=== PATIENT | male | born 1975 | race African-American/Black ===

== ENCOUNTER 2021-10-10 03:50 | Observation (INO) | payer BC ==
[2021-10-10] MEDS ORDERED: SODIUM CHLORIDE 0.9% 1,000 ML IV STA ×2 (03:54→06:06)
[2021-10-10] MEDS ORDERED: ADENOSINE 3 MG/ML 2 ML VIAL IVP STA (03:54)
[2021-10-10] MEDS ORDERED: METOPROLOL TARTRATE 5 MG/5 ML VIAL IVP STA (03:54)
[2021-10-10] MEDS ORDERED: IBUPROFEN 800 MG TAB PO STA (04:01)
[2021-10-10] MEDS ORDERED: ACETAMINOPHEN TAB 500 MG TAB PO STA (04:01)
--- NOTE | 2021-10-10 04:02 | ED ---
Arrhythmia/Palpitations HPI - General Chief Complaint: Arrhythmia/Palpitations Stated Complaint: High heart rate Time Seen by Provider: 10/10/21 03:53 Source: patient, EMS, RN notes reviewed, old records reviewed Mode of arrival: EMS Limitations: no limitations - History of Present Illness Initial Comments: This is a 46-year-old male to the ER for evaluation. Patient presents today for evaluation regards to severe shortness of breath significant elevated heart rate in SVT. Patient has again history of SVT. Patient states he feels weak and fatigued bodyaches body pains and fever. MD Complaint: rapid heart beat, "heart racing", palpitations -: hour(s) Arrhythmia History: SVT Associated Symptoms: anxiety, feeling of impending doom Treatments Prior to Arrival: other (none) - Related Data Home Medications Medication Instructions Recorded Confirmed Dm/Acetaminophen/Doxylamine [Vicks 30 ml PO Q6H PRN 10/10/21 10/10/21 Nyquil Cold-Flu Liquid] Metoprolol Succinate [Toprol XL] 50 mg PO DAILY 10/10/21 10/10/21 Previous Rx's Medication Instructions Recorded Azithromycin [Zithromax Z-pack (6 0 mg PO DIRECTED 5 Days #6 tab 10/10/21 tabs)] Budesonide-Formot 160-4.5 Mcg 2 puff INHALATION BID #1 each 10/10/21 [Symbicort 160-4.5 Mcg Inhaler] Triamcinolone Acetonide [Nasacort] 1 spray EA NOSTRIL BID 10 Days 10/10/21 #10.8 ml Allergies Allergy/AdvReac Type Severity Reaction Status Date / Time No Known Allergies Allergy Verified 10/10/21 08:07 Review of Systems ROS Statement: Those systems with pertinent positive or pertinent negative responses have been documented in the HPI. ROS Other: All systems not noted in ROS Statement are negative. Past Medical History Past Medical History: Hypertension Additional Past Medical History / Comment(s): Svt History of Any Multi-Drug Resistant Organisms: None Reported Past Surgical History: Appendectomy, Hernia Repair Additional Past Surgical History / Comment(s): Right Shoulder Surgery Past Psychological History: No Psychological Hx Reported Smoking Status: Never smoker Past Alcohol Use History: None Reported Past Drug Use History: None Reported General Exam Limitations: no limitations General appearance: alert, anxious, in distress Head exam: Present: atraumatic, normocephalic, normal inspection Eye exam: Present: normal appearance, PERRL, EOMI. Absent: scleral icterus, conjunctival injection, periorbital swelling ENT exam: Present: normal exam, mucous membranes moist Neck exam: Present: normal inspection. Absent: tenderness, meningismus, lymphadenopathy Respiratory exam: Present: normal lung sounds bilaterally. Absent: respiratory distress, wheezes, rales, rhonchi, stridor Cardiovascular Exam: Present: tachycardia, irregular rhythm, normal heart sounds. Absent: systolic murmur, diastolic murmur, rubs, gallop, clicks GI/Abdominal exam: Present: soft, normal bowel sounds. Absent: distended, tenderness, guarding, rebound, rigid Extremities exam: Present: normal inspection, full ROM, normal capillary refill. Absent: tenderness, pedal edema, joint swelling, calf tenderness Back exam: Present: normal inspection Neurological exam: Present: alert, oriented X3, CN II-XII intact Psychiatric exam: Present: normal affect, normal mood Skin exam: Present: warm, dry, intact, normal color. Absent: rash Course Vital Signs 10/10/21 10/10/21 10/10/21 04:01 08:21 08:49 Temperature 103.1 F H 99.2 F Pulse Rate 99 67 67 Pulse Rate [ Cte Teacher ] Respiratory 16 18 Rate Blood Pressure 136/92 108/78 Blood Pressure [Right Arm] O2 Sat by Pulse 97 96 97 Oximetry 10/10/21 10/10/21 10/10/21 09:15 12:31 13:42 Temperature 98.5 F 98.4 F Pulse Rate 67 63 Pulse Rate [ 78 Cte Teacher ] Respiratory 18 18 16 Rate Blood Pressure 111/78 124/85 Blood Pressure 138/93 [Right Arm] O2 Sat by Pulse 97 97 96 Oximetry 10/10/21 10/10/21 10/10/21 14:00 15:07 16:00 Temperature Pulse Rate Pulse Rate [ 78 73 Cte Teacher ] Respiratory 16 16 Rate Blood Pressure Blood Pressure 144/86 136/83 130/77 [Right Arm] O2 Sat by Pulse 96 95 Oximetry - Reevaluation(s) Reevaluation #1: 10/10/21 07:02 Medical record is reviewed Reevaluation #2: 10/10/21 07:02 Patient will do antibody treatment Reevaluation #3: 10/10/21 07:02 Patient is currently without chest pain or shortness of breath patient informed of results from labs and is agreeable for observation EKG Findings - EKG Comments: EKG Findings:: Initial. EKG shows SVT 186 WA 110 QRS 0.096 QTC 44. EKG shows sinus rhythm 100 care 142 QRS 70 QTC 434 Medical Decision Making - Medical Decision Making 46 male who presents to the emergency department today for evaluation. Patient presents today for evaluation of shortness of breath and patient is here without any chest pain and no other complaints. Patient is given antibodies here in the ER and will admit for trending of toroponin and monitoring. - Lab Data Result diagrams: 10/10/21 04:03 10/10/21 04:03 Lab Results 10/10/21 10/10/21 10/10/21 Range/Units 04:03 04:03 04:03 WBC 12.0 H (3.8-10.6) k/uL RBC 5.46 (4.30-5.90) m/uL Hgb 15.9 (13.0-17.5) gm/dL Hct 47.7 (39.0-53.0) % MCV 87.3 (80.0-100.0) fL MCH 29.2 (25.0-35.0) pg MCHC 33.4 (31.0-37.0) g/dL RDW 13.5 (11.5-15.5) % Plt Count 161 (150-450) k/uL MPV 8.9 Neutrophils % 80 % Lymphocytes % 6 % Monocytes % 9 % Eosinophils % 3 % Basophils % 0 % Neutrophils # 9.5 H (1.3-7.7) k/uL Lymphocytes # 0.7 L (1.0-4.8) k/uL Monocytes # 1.0 (0-1.0) k/uL Eosinophils # 0.3 (0-0.7) k/uL Basophils # 0.0 (0-0.2) k/uL PT 11.5 (9.0-12.0) sec INR 1.1 (<1.2) APTT 26.6 (22.0-30.0) sec D-Dimer 1.88 H (<0.60) mg/L FEU Sodium (137-145) mmol/L Potassium (3.5-5.1) mmol/L Chloride (98-107) mmol/L Carbon Dioxide (22-30) mmol/L Anion Gap mmol/L BUN (9-20) mg/dL Creatinine (0.66-1.25) mg/dL Est GFR (CKD-EPI)AfAm (>60 ml/min/1.73 sqM) Est GFR (CKD-EPI)NonAf (>60 ml/min/1.73 sqM) Glucose (74-99) mg/dL Plasma Lactic Acid Donny (0.7-2.0) mmol/L Calcium (8.4-10.2) mg/dL Phosphorus (2.5-4.5) mg/dL Magnesium (1.6-2.3) mg/dL Total Bilirubin (0.2-1.3) mg/dL AST (17-59) U/L ALT (4-49) U/L Alkaline Phosphatase (38-126) U/L Lactate Dehydrogenase (313-618) U/L Troponin I (0.000-0.034) ng/mL C-Reactive Protein (<1.0) mg/dL NT-Pro-B Natriuret Pep pg/mL Total Protein (6.3-8.2) g/dL Albumin (3.5-5.0) g/dL TSH (0.465-4.680) mIU/L Urine Color [place] Urine Appearance Cloudy (Clear) Urine pH 6.0 (5.0-8.0) Ur Specific [place] 1.026 (1.001-1.035) Urine Protein 2+ H (Negative) Urine Glucose (UA) Negative (Negative) Urine Ketones 2+ H (Negative) Urine Blood Large H (Negative) Urine Nitrite Negative (Negative) Urine Bilirubin 2+ H (Negative) Urine Urobilinogen 4.0 (<2.0) mg/dL Ur Leukocyte Esterase Negative (Negative) Urine RBC 49 H (0-5) /hpf Urine WBC 8 H (0-5) /hpf Ur Squamous Epith Cells 1 (0-4) /hpf Urine Bacteria Rare H (None) /hpf Cellular Casts 1 (0) /lpf Hyaline Casts 4 H (0-2) /lpf Granular Casts 8 (0) /lpf Urine Mucus Moderate H (None) /hpf Influenza Type A (PCR) (Not Detectd) Influenza Type B (PCR) (Not Detectd) RSV (PCR) (Not Detectd) SARS-CoV-2 (PCR) (Not Detectd) 10/10/21 10/10/21 10/10/21 Range/Units 04:03 04:03 04:03 WBC (3.8-10.6) k/uL RBC (4.30-5.90) m/uL Hgb (13.0-17.5) gm/dL Hct (39.0-53.0) % MCV (80.0-100.0) fL MCH (25.0-35.0) pg MCHC (31.0-37.0) g/dL RDW (11.5-15.5) % Plt Count (150-450) k/uL MPV Neutrophils % % Lymphocytes % % Monocytes % % Eosinophils % % Basophils % % Neutrophils # (1.3-7.7) k/uL Lymphocytes # (1.0-4.8) k/uL Monocytes # (0-1.0) k/uL Eosinophils # (0-0.7) k/uL Basophils # (0-0.2) k/uL PT (9.0-12.0) sec INR (<1.2) APTT (22.0-30.0) sec D-Dimer (<0.60) mg/L FEU Sodium 135 L (137-145) mmol/L Potassium 3.4 L (3.5-5.1) mmol/L Chloride 102 (98-107) mmol/L Carbon Dioxide 19 L (22-30) mmol/L Anion Gap 14 mmol/L BUN 14 (9-20) mg/dL Creatinine 1.37 H (0.66-1.25) mg/dL Est GFR (CKD-EPI)AfAm 72 (>60 ml/min/1.73 sqM) Est GFR (CKD-EPI)NonAf 62 (>60 ml/min/1.73 sqM) Glucose 125 H (74-99) mg/dL Plasma Lactic Acid Donny 1.8 (0.7-2.0) mmol/L Calcium 9.0 (8.4-10.2) mg/dL Phosphorus 3.5 (2.5-4.5) mg/dL Magnesium 1.8 (1.6-2.3) mg/dL Total Bilirubin 3.5 H (0.2-1.3) mg/dL AST 67 H (17-59) U/L ALT 89 H (4-49) U/L Alkaline Phosphatase 133 H (38-126) U/L Lactate Dehydrogenase 609 (313-618) U/L Troponin I 0.086 H* (0.000-0.034) ng/mL C-Reactive Protein 20.1 H (<1.0) mg/dL NT-Pro-B Natriuret Pep pg/mL Total Protein 7.7 (6.3-8.2) g/dL Albumin 4.1 (3.5-5.0) g/dL TSH 2.260 (0.465-4.680) mIU/L Urine Color Urine Appearance (Clear) Urine pH (5.0-8.0) Ur Specific [place] (1.001-1.035) Urine Protein (Negative) Urine Glucose (UA) (Negative) Urine Ketones (Negative) Urine Blood (Negative) Urine Nitrite (Negative) Urine Bilirubin (Negative) Urine Urobilinogen (<2.0) mg/dL Ur Leukocyte Esterase (Negative) Urine RBC (0-5) /hpf Urine WBC (0-5) /hpf Ur Squamous Epith Cells (0-4) /hpf Urine Bacteria (None) /hpf Cellular Casts (0) /lpf Hyaline Casts (0-2) /lpf Granular Casts (0) /lpf Urine Mucus (None) /hpf Influenza Type A (PCR) (Not Detectd) Influenza Type B (PCR) (Not Detectd) RSV (PCR) (Not Detectd) SARS-CoV-2 (PCR) (Not Detectd) 10/10/21 10/10/21 Range/Units 04:03 04:03 WBC (3.8-10.6) k/uL RBC (4.30-5.90) m/uL Hgb (13.0-17.5) gm/dL Hct (39.0-53.0) % MCV (80.0-100.0) fL MCH (25.0-35.0) pg MCHC (31.0-37.0) g/dL RDW (11.5-15.5) % Plt Count (150-450) k/uL MPV Neutrophils % % Lymphocytes % % Monocytes % % Eosinophils % % Basophils % % Neutrophils # (1.3-7.7) k/uL Lymphocytes # (1.0-4.8) k/uL Monocytes # (0-1.0) k/uL Eosinophils # (0-0.7) k/uL Basophils # (0-0.2) k/uL PT (9.0-12.0) sec INR (<1.2) APTT (22.0-30.0) sec D-Dimer (<0.60) mg/L FEU Sodium (137-145) mmol/L Potassium (3.5-5.1) mmol/L Chloride (98-107) mmol/L Carbon Dioxide (22-30) mmol/L Anion Gap mmol/L BUN (9-20) mg/dL Creatinine (0.66-1.25) mg/dL Est GFR (CKD-EPI)AfAm (>60 ml/min/1.73 sqM) Est GFR (CKD-EPI)NonAf (>60 ml/min/1.73 sqM) Glucose (74-99) mg/dL Plasma Lactic Acid Donny (0.7-2.0) mmol/L Calcium (8.4-10.2) mg/dL Phosphorus (2.5-4.5) mg/dL Magnesium (1.6-2.3) mg/dL Total Bilirubin (0.2-1.3) mg/dL AST (17-59) U/L ALT (4-49) U/L Alkaline Phosphatase (38-126) U/L Lactate Dehydrogenase (313-618) U/L Troponin I (0.000-0.034) ng/mL C-Reactive Protein (<1.0) mg/dL NT-Pro-B Natriuret Pep 207 pg/mL Total Protein (6.3-8.2) g/dL Albumin (3.5-5.0) g/dL TSH (0.465-4.680) mIU/L Urine Color Urine Appearance (Clear) Urine pH (5.0-8.0) Ur Specific [place] (1.001-1.035) Urine Protein (Negative) Urine Glucose (UA) (Negative) Urine Ketones (Negative) Urine Blood (Negative) Urine Nitrite (Negative) Urine Bilirubin (Negative) Urine Urobilinogen (<2.0) mg/dL Ur Leukocyte Esterase (Negative) Urine RBC (0-5) /hpf Urine WBC (0-5) /hpf Ur Squamous Epith Cells (0-4) /hpf Urine Bacteria (None) /hpf Cellular Casts (0) /lpf Hyaline Casts (0-2) /lpf Granular Casts (0) /lpf Urine Mucus (None) /hpf Influenza Type A (PCR) Not Detected (Not Detectd) Influenza Type B (PCR) Not Detected (Not Detectd) RSV (PCR) Not Detected (Not Detectd) SARS-CoV-2 (PCR) Detected A (Not Detectd) - Radiology Data Radiology results: report reviewed (CT is bilateral pneumonia), image reviewed Disposition Clinical Impression: Coronavirus infection, Pneumonia due to COVID-19 virus, Chest pain Disposition: ADMITTED IP TO THIS HOSP Condition: Fair Is patient prescribed a controlled substance at d/c from ED?: No
[2021-10-10 04:25] LABS: Basophils % (A) 0 %; Eosinophils # (A) 0.3 k/uL (0-0.7); Eosinophils % (A) 3 %; HCT 47.7 % (39.0-53.0); HGB 15.9 gm/dL (13.0-17.5); Lymphocytes # (A) 0.7 k/uL (1.0-4.8); Lymphocytes % (A) 6 %; MCH 29.2 pg (25.0-35.0); MCHC 33.4 g/dL (31.0-37.0); MCV 87.3 fL (80.0-100.0); Mean Platelet Volume 8.9; Monocytes % (A) 9 %; Neutrophils # (A) 9.5 k/uL (1.3-7.7); Neutrophils % (A) 80 %; Platelet Count 161 k/uL (150-450); RBC 5.46 m/uL (4.30-5.90); RDW 13.5 % (11.5-15.5)
[2021-10-10 04:39] LABS: Albumin 4.1 g/dL (3.5-5.0); Magnesium 1.8 mg/dL (1.6-2.3); Phosphorus 3.5 mg/dL (2.5-4.5); Potassium 3.4 mmol/L (3.5-5.1); Total Bilirubin 3.5 mg/dL (0.2-1.3); Total Protein 7.7 g/dL (6.3-8.2)
[2021-10-10 04:41] LABS: INR 1.1 (<1.2); Partial Thromboplastin Time 26.6 sec (22.0-30.0); Prothrombin Time 11.5 sec (9.0-12.0)
[2021-10-10 05:07] LABS: Appearance,Urine Cloudy (Clear); Bacteria,Urine Rare /hpf; Bilirubin,Urine 2+ (Negative); Blood,Urine Large (Negative); Cellular Casts,Urine 1 /lpf (0); Color,Urine Orange; Glucose,Urine (UA) Negative (Negative); Granular Casts,Urine 8 /lpf (0); Hyaline Casts,Urine 4 /lpf (0-2); Ketones,Urine 2+ (Negative); Leukocyte Esterase,Urine Negative (Negative); Mucus,Urine Moderate /hpf; Nitrite,Urine Negative (Negative); Protein,Urine 2+ (Negative); RBC,Urine 49 /hpf (0-5); Specific Gravity,Urine 1.026 (1.001-1.035); Squamous Epithelial Cell,Urine 1 /hpf (0-4); WBC,Urine 8 /hpf (0-5)
[2021-10-10 05:19] LABS: C Reactive Protein 20.1 mg/dL (<1.0)
--- NOTE | 2021-10-10 05:39 | XR ---
EXAMINATION TYPE: XR chest 1V portable DATE OF EXAM: 10/10/2021 COMPARISON: NONE HISTORY: Chest pain TECHNIQUE: Single view FINDINGS: There is no heart failure nor confluent pneumonic infiltrate. Costophrenic angles are clear . There are chest leads. Bony thorax is intact. IMPRESSION: No active cardiopulmonary disease. Normal heart.
[2021-10-10] MEDS ORDERED: KETOROLAC 15 MG/ML 1 ML VIAL IVP STA (06:00)
[2021-10-10] MEDS ORDERED: DEXAMETHASONE SOD PHOSPHATE 10 MG/ML 1 ML VIAL IVP STA (06:00)
[2021-10-10] MEDS ORDERED: SODIUM CHLORIDE 0.9% 1,000 ML IV SCH (06:15)
--- NOTE | 2021-10-10 06:56 | CT ---
EXAMINATION TYPE: CT angio chest DATE OF EXAM: 10/10/2021 COMPARISON: Chest x-ray earlier today HISTORY: PE, Covid positive CT DLP: 471.3 mGycm. Automated Exposure Control for Dose Reduction was Utilized. CONTRAST: CTA scan of the thorax is performed without and with IV Contrast, patient injected with 100 ml mL of Isovue 370, pulmonary embolism protocol. MIP Images are created on CT scanner and reviewed. FINDINGS: LUNGS: Trace bilateral pleural effusions. Associated mild bibasilar atelectasis. No significant focal groundglass opacities or consolidations. No concerning masses. No pneumothorax seen bilaterally. Tra cheobronchial tree is patent. MEDIASTINUM: There is satisfactory enhancement of the pulmonary artery and its branches, there is no CT evidence for pulmonary embolism. Enlarged main pulmonary artery of 3.7 cm image 43 raises concern for underlying pulmonary artery hypertension. Correlate clinically. There are no greater than 1 cm h ilar or mediastinal lymph nodes. Tiny pericardial effusion is seen. No cardiomegaly. Satisfactory enh ancement of the aorta without aneurysm or dissection. OTHER: Low dense thickening to both adrenal glands consistent with benign lipid rich hyperplasia. IMPRESSION: No CT evidence for acute pulmonary embolism. Trace bilateral pleural effusions with bilat eral lower lung atelectatic change.
[2021-10-10] MEDS ORDERED: MORPHINE SULFATE 4 MG/ML SYRINGE IV PRN (07:11)
[2021-10-10] MEDS ORDERED: NALOXONE 0.4 MG/ML 1 ML VIAL IV PRN (07:11)
[2021-10-10] MEDS ORDERED: BAMLANIVIMAB (EUA) 700 MG, ETESEVIMAB (EUA) 1,400 MG in SODIUM CHLORIDE 0.9% 100 ML IVPB ONE (08:00)
[2021-10-10] MEDS ORDERED: SODIUM CHLORIDE 0.9% 50 ML IVPB ONE (08:30)
[2021-10-10 12:36] VITALS: TEMP 98.4
--- NOTE | 2021-10-10 12:52 | ECHOF ---
Referral Reason:Chest Pain and abnormal troponin MEASUREMENTS -------- HEIGHT: 180.3 cm WEIGHT: 112.9 kg BP: RVIDd: 2.4 cm (< 3.3) IVSd: 1.4 cm (0.6 - 1.1) LVIDd: 4.1 cm (3.9 - 5.3) LVPWd: 1.7 cm (0.6 - 1.1) IVSs: 1.7 cm LVIDs: 3.1 cm LVPWs: 2.1 cm MV E Gregg: 0.68 m/s MV DecT: 204 ms MV A Gregg: 0.62 m/s MV E/A Ratio: 1.10 AR PHT: 926 ms RAP: 5.00 mmHg RVSP: 14.10 mmHg FINDINGS -------- This was a technically good study. The left ventricular size is normal. There is moderate concentric left ventricular hypertrophy. O verall left ventricular systolic function is normal with, an EF between 55 - 60 %. The right ventricle is normal in size. The left atrial size is normal. The right atrial size is normal. The aortic valve is trileaflet and appears structurally normal. Trace amount of aortic regurgitatio n. The mitral valve is normal. There is trace mitral regurgitation. The tricuspid valve appears structurally normal. Trace tricuspid regurgitation present. Right kenna tricular systolic pressure is normal at < 35 mmHg. There is no pulmonic regurgitation present. The aortic root size is normal. Normal inferior vena cava with normal inspiratory collapse consistent with estimated right atrial pre ssure of 5 mmHg. There is no pericardial effusion. CONCLUSIONS -------- 1. The left ventricular size is normal. 2. There is moderate concentric left ventricular hypertrophy. 3. Overall left ventricular systolic function is normal with, an EF between 55 - 60 %. 4. Trace amount of aortic regurgitation. 5. There is trace mitral regurgitation. 6. Trace tricuspid regurgitation present. 7. There is no pericardial effusion. HORSE TRAINER: Gabriela Woods RDCS
[2021-10-10 15:19] VITALS: RESP 16
[2021-10-10 16:49] VITALS: BP 130/77; PULSE 73
--- NOTE | 2021-10-10 17:21 | P.HPIM ---
History of Present Illness H&P Date: 10/10/21 Chief Complaint: Cough, chest pains or palpitations This will provide both an H&P and discharge summary for observation This is a 46-year-old gentleman, patient of Dr. Lopez known history of hypertension, SVT, nonvaccinated, presenting to emergency room secondary to cough of 3 days' duration, with low-grade fever, and painful breathing. Patient did not receive any treatment prior to this, presenting emergency room with Covid test that is positive, he had 3 levels of troponin that was performed, 0.086, 0.068, in 0.22, patient had palpitations and fast heart rate,, heart rate in the 180s, this was controlled by the emergency room physician with adenosine 1 dose, and metoprolol 50 mg extra doses. Patient also was started on monoclonal antibody, Bamlanivima and etesevimag with his consent as per emergency use utilization. Patient did not require any oxygen on now while here, with pulse ox in the 94-97% range, without any significant tachypnea. Chest x-ray shows no active pulmonary disease, normal heart no CHF. CTA, negative for pulmonary emboli, trace bilateral pleural effusion, with bilateral lower lung atelectasis changes. There is adrenal glands on low-density thickening, consistent with benign lipid which hyperplasia patient requested to be discharged home today, after cleared by cardiology. Echocardiogram, shows ejection fraction 55-60%, right ventricle systolic pressure is normal, moderate concentric LVH, trace MR, trileaflet aortic valve, trace AR no peripheral effusion Review of Systems Constitutional: Reports as per HPI, Reports chills, Reports fever, Reports malaise Ears, nose, mouth and throat: Reports as per HPI, Reports headache, Reports nasal congestion, Reports sore throat, Denies hoarseness, Denies neck lump, Denies odynophagia Cardiovascular: Reports as per HPI, Reports palpitations Respiratory: Reports as per HPI, Denies home oxygen, Denies sleep apnea Gastrointestinal: Reports as per HPI, Reports loss of appetite, Denies abdominal pain, Denies bloating, Denies BRBPR, Denies dyspepsia, Denies melena Genitourinary: Reports as per HPI Musculoskeletal: Reports as per HPI, Denies gait dysfunction, Denies low back pain Integumentary: Reports as per HPI Neurological: Reports as per HPI, Denies motor disturbance, Denies seizures, Denies visual changes Psychiatric: Reports as per HPI, Denies change in sleep habits, Denies insomnia, Denies irritability, Denies sleep disturbances Endocrine: Reports as per HPI Hematologic/Lymphatic: Reports as per HPI, Denies easy bleeding, Denies easy bruising, Denies lymphadenopathy, Denies lymphedema, Denies thrombophilia Allergic/Immunologic: Reports as per HPI, Denies allergic rhinitis, Denies anaphylaxis, Denies angioedema, Denies gluten intolerance, Denies persistent infections, Denies seasonal allergies, Denies urticaria, Denies wheezing Past Medical History Past Medical History: Hypertension Additional Past Medical History / Comment(s): Svt History of Any Multi-Drug Resistant Organisms: None Reported Past Surgical History: Appendectomy, Hernia Repair Additional Past Surgical History / Comment(s): Right Shoulder Surgery Past Psychological History: No Psychological Hx Reported Smoking Status: Never smoker Past Alcohol Use History: None Reported Past Drug Use History: None Reported Medications and Allergies Home Medications Medication Instructions Recorded Confirmed Type Azithromycin [Zithromax Z-pack (6 0 mg PO DIRECTED 5 Days #6 tab 10/10/21 Rx tabs)] Budesonide-Formot 160-4.5 Mcg 2 puff INHALATION BID #1 each 10/10/21 Rx [Symbicort 160-4.5 Mcg Inhaler] Dm/Acetaminophen/Doxylamine [Vicks 30 ml PO Q6H PRN 10/10/21 10/10/21 History Nyquil Cold-Flu Liquid] Metoprolol Succinate [Toprol XL] 50 mg PO DAILY 10/10/21 10/10/21 History Triamcinolone Acetonide [Nasacort] 1 spray EA NOSTRIL BID 10 Days 10/10/21 Rx #10.8 ml Allergies Allergy/AdvReac Type Severity Reaction Status Date / Time No Known Allergies Allergy Verified 10/10/21 08:07 Physical Exam Vitals: Vital Signs Temp Pulse Resp BP Pulse Ox 10/10/21 09:15 98.5 F 67 18 111/78 97 10/10/21 08:49 67 18 108/78 97 10/10/21 08:21 99.2 F 67 96 10/10/21 04:01 103.1 F H 99 16 136/92 97 Intake and Output 10/09/21 10/10/21 10/10/21 22:59 06:59 14:59 Other: Weight 112.945 kg - Constitutional General appearance: cooperative, no acute distress - EENT Eyes: EOMI, PERRLA, normal appearance ENT: NA/AT, normal oropharynx - Neck Neck: normal ROM - Respiratory Respiratory: bilateral: CTA, negative: diminished, dullness, rales, rhonchi - Cardiovascular Rhythm: regular Heart sounds: normal: S1, S2 Abnormal Heart Sounds: no systolic murmur, no diastolic murmur, no rub, no S3 Gallop, no S4 Gallop, no click, no other - Gastrointestinal General gastrointestinal: normal bowel sounds, soft - Integumentary Integumentary: decreased turgor, normal - Neurologic Neurologic: CNII-XII intact - Musculoskeletal Musculoskeletal: gait normal, strength equal bilaterally - Psychiatric Psychiatric: A&O x's 3, intact judgment & insight Results CBC & Chem 7: 10/10/21 04:03 10/10/21 04:03 Labs: Abnormal Lab Results - Last 24 Hours (Table) 10/10/21 10/10/21 10/10/21 Range/Units 04:03 04:03 04:03 WBC 12.0 H (3.8-10.6) k/uL Neutrophils # 9.5 H (1.3-7.7) k/uL Lymphocytes # 0.7 L (1.0-4.8) k/uL D-Dimer 1.88 H (<0.60) mg/L FEU Sodium (137-145) mmol/L Potassium (3.5-5.1) mmol/L Carbon Dioxide (22-30) mmol/L Creatinine (0.66-1.25) mg/dL Glucose (74-99) mg/dL Total Bilirubin (0.2-1.3) mg/dL AST (17-59) U/L ALT (4-49) U/L Alkaline Phosphatase (38-126) U/L Troponin I (0.000-0.034) ng/mL C-Reactive Protein (<1.0) mg/dL Urine Protein 2+ H (Negative) Urine Ketones 2+ H (Negative) Urine Blood Large H (Negative) Urine Bilirubin 2+ H (Negative) Urine RBC 49 H (0-5) /hpf Urine WBC 8 H (0-5) /hpf Urine Bacteria Rare H (None) /hpf Hyaline Casts 4 H (0-2) /lpf Urine Mucus Moderate H (None) /hpf SARS-CoV-2 (PCR) (Not Detectd) 10/10/21 10/10/21 10/10/21 Range/Units 04:03 04:03 04:03 WBC (3.8-10.6) k/uL Neutrophils # (1.3-7.7) k/uL Lymphocytes # (1.0-4.8) k/uL D-Dimer (<0.60) mg/L FEU Sodium 135 L (137-145) mmol/L Potassium 3.4 L (3.5-5.1) mmol/L Carbon Dioxide 19 L (22-30) mmol/L Creatinine 1.37 H (0.66-1.25) mg/dL Glucose 125 H (74-99) mg/dL Total Bilirubin 3.5 H (0.2-1.3) mg/dL AST 67 H (17-59) U/L ALT 89 H (4-49) U/L Alkaline Phosphatase 133 H (38-126) U/L Troponin I 0.086 H* (0.000-0.034) ng/mL C-Reactive Protein 20.1 H (<1.0) mg/dL Urine Protein (Negative) Urine Ketones (Negative) Urine Blood (Negative) Urine Bilirubin (Negative) Urine RBC (0-5) /hpf Urine WBC (0-5) /hpf Urine Bacteria (None) /hpf Hyaline Casts (0-2) /lpf Urine Mucus (None) /hpf SARS-CoV-2 (PCR) Detected A (Not Detectd) 10/10/21 10/10/21 Range/Units 07:30 09:53 WBC (3.8-10.6) k/uL Neutrophils # (1.3-7.7) k/uL Lymphocytes # (1.0-4.8) k/uL D-Dimer (<0.60) mg/L FEU Sodium (137-145) mmol/L Potassium (3.5-5.1) mmol/L Carbon Dioxide (22-30) mmol/L Creatinine (0.66-1.25) mg/dL Glucose (74-99) mg/dL Total Bilirubin (0.2-1.3) mg/dL AST (17-59) U/L ALT (4-49) U/L Alkaline Phosphatase (38-126) U/L Troponin I 0.068 H* 0.220 H* (0.000-0.034) ng/mL C-Reactive Protein (<1.0) mg/dL Urine Protein (Negative) Urine Ketones (Negative) Urine Blood (Negative) Urine Bilirubin (Negative) Urine RBC (0-5) /hpf Urine WBC (0-5) /hpf Urine Bacteria (None) /hpf Hyaline Casts (0-2) /lpf Urine Mucus (None) /hpf SARS-CoV-2 (PCR) (Not Detectd) Laboratory Results WBC 12.0 k/uL (3.8-10.6) H 10/10/21 04:03 RBC 5.46 m/uL (4.30-5.90) 10/10/21 04:03 Hgb 15.9 gm/dL (13.0-17.5) 10/10/21 04:03 Hct 47.7 % (39.0-53.0) 10/10/21 04:03 MCV 87.3 fL (80.0-100.0) 10/10/21 04:03 MCH 29.2 pg (25.0-35.0) 10/10/21 04:03 MCHC 33.4 g/dL (31.0-37.0) 10/10/21 04:03 RDW 13.5 % (11.5-15.5) 10/10/21 04:03 Plt Count 161 k/uL (150-450) 10/10/21 04:03 MPV 8.9 10/10/21 04:03 Neutrophils % 80 % 10/10/21 04:03 Lymphocytes % 6 % 10/10/21 04:03 Monocytes % 9 % 10/10/21 04:03 Eosinophils % 3 % 10/10/21 04:03 Basophils % 0 % 10/10/21 04:03 Neutrophils # 9.5 k/uL (1.3-7.7) H 10/10/21 04:03 Lymphocytes # 0.7 k/uL (1.0-4.8) L 10/10/21 04:03 Monocytes # 1.0 k/uL (0-1.0) 10/10/21 04:03 Eosinophils # 0.3 k/uL (0-0.7) 10/10/21 04:03 Basophils # 0.0 k/uL (0-0.2) 10/10/21 04:03 PT 11.5 sec (9.0-12.0) 10/10/21 04:03 INR 1.1 (<1.2) 10/10/21 04:03 APTT 26.6 sec (22.0-30.0) 10/10/21 04:03 D-Dimer 1.88 mg/L FEU (<0.60) H 10/10/21 04:03 Sodium 135 mmol/L (137-145) L 10/10/21 04:03 Potassium 3.4 mmol/L (3.5-5.1) L 10/10/21 04:03 Chloride 102 mmol/L (98-107) 10/10/21 04:03 Carbon Dioxide 19 mmol/L (22-30) L 10/10/21 04:03 Anion Gap 14 mmol/L 10/10/21 04:03 BUN 14 mg/dL (9-20) 10/10/21 04:03 Creatinine 1.37 mg/dL (0.66-1.25) H 10/10/21 04:03 Est GFR (CKD-EPI)AfAm 72 (>60 ml/min/1.73 sqM) 10/10/21 04:03 Est GFR (CKD-EPI)NonAf 62 (>60 ml/min/1.73 sqM) 10/10/21 04:03 Glucose 125 mg/dL (74-99) H 10/10/21 04:03 Plasma Lactic Acid Donny 1.8 mmol/L (0.7-2.0) 10/10/21 04:03 Calcium 9.0 mg/dL (8.4-10.2) 10/10/21 04:03 Phosphorus 3.5 mg/dL (2.5-4.5) 10/10/21 04:03 Magnesium 1.8 mg/dL (1.6-2.3) 10/10/21 04:03 Total Bilirubin 3.5 mg/dL (0.2-1.3) H 10/10/21 04:03 AST 67 U/L (17-59) H 10/10/21 04:03 ALT 89 U/L (4-49) H 10/10/21 04:03 Alkaline Phosphatase 133 U/L (38-126) H 10/10/21 04:03 Lactate Dehydrogenase 609 U/L (313-618) 10/10/21 04:03 Troponin I 0.220 ng/mL (0.000-0.034) H* 10/10/21 09:53 C-Reactive Protein 20.1 mg/dL (<1.0) H 10/10/21 04:03 NT-Pro-B Natriuret Pep 207 pg/mL 10/10/21 04:03 Total Protein 7.7 g/dL (6.3-8.2) 10/10/21 04:03 Albumin 4.1 g/dL (3.5-5.0) 10/10/21 04:03 TSH 2.260 mIU/L (0.465-4.680) 10/10/21 04:03 Urine Color [place] 10/10/21 04:03 Urine Appearance Cloudy (Clear) 10/10/21 04:03 Urine pH 6.0 (5.0-8.0) 10/10/21 04:03 Ur Specific [place] 1.026 (1.001-1.035) 10/10/21 04:03 Urine Protein 2+ (Negative) H 10/10/21 04:03 Urine Glucose (UA) Negative (Negative) 10/10/21 04:03 Urine Ketones 2+ (Negative) H 10/10/21 04:03 Urine Blood Large (Negative) H 10/10/21 04:03 Urine Nitrite Negative (Negative) 10/10/21 04:03 Urine Bilirubin 2+ (Negative) H 10/10/21 04:03 Urine Urobilinogen 4.0 mg/dL (<2.0) 10/10/21 04:03 Ur Leukocyte Esterase Negative (Negative) 10/10/21 04:03 Urine RBC 49 /hpf (0-5) H 10/10/21 04:03 Urine WBC 8 /hpf (0-5) H 10/10/21 04:03 Ur Squamous Epith Cells 1 /hpf (0-4) 10/10/21 04:03 Urine Bacteria Rare /hpf (None) H 10/10/21 04:03 Cellular Casts 1 /lpf (0) 10/10/21 04:03 Hyaline Casts 4 /lpf (0-2) H 10/10/21 04:03 Granular Casts 8 /lpf (0) 10/10/21 04:03 Urine Mucus Moderate /hpf (None) H 10/10/21 04:03 Influenza Type A (PCR) Not Detected (Not Detectd) 10/10/21 04:03 Influenza Type B (PCR) Not Detected (Not Detectd) 10/10/21 04:03 RSV (PCR) Not Detected (Not Detectd) 10/10/21 04:03 SARS-CoV-2 (PCR) Detected (Not Detectd) A 10/10/21 04:03 Assessment and Plan Plan: 1 acute covered, without hypoxemia, mild to moderate patient received Bamlaniv imab and etesevimab combo in the emergency room, for which we will monitor as an outpatient to his PCP. Patient has to invest on a pulse oximetry which she already has at home, discharged with Zithromax, and Symbicort when necessary, no need for dexamethasone at this time, this can be decided over the next few days secondary to concurrent use of the monoclonal antibodies. 2. 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 BMI 32 4. Hypertension with moderate concentric LVH, ejection fraction of 55-60%, on metoprolol 50 mg twice a day 5. Troponin mildly elevated, most likely secondary to call with infection, early sepsis against demand ischemia, secondary to SVT cardiology to see as an outpatient Discharge to home stable, Patient For observation status Follow-up with cardiology and PCP, via virtual visits until cleared of COVID quarantine
--- NOTE | 2021-10-10 18:25 | P.CRDCN ---
History of Present Illness Consult date: 10/10/21 History of present illness: This is a 46-year-old gentleman with history of hypertension and SVT who presented to the emergency room with a low-grade fever cough and also painful breathing. Patient also tested positive for COVID. Patient presented to the hospital with SVT with heart rates of about 180-200. She was given Indocin with conversion to sinus rhythm. Patient is also given extra dose of metoprolol. Patient was given a monoclonal antibodies. Patient troponins were abnormal. His felt that most probably related to tachycardia. His echo [place] showed normal LV function without any wall motion abnormalities. His oxygen saturations are fairly well maintained. At this point, the picture is not suggestive, syndrome. We'll continue to monitor him and continue treating with beta blockers and aspirin. Further recommendations depend about critical course. This patient is not personally examined to avoid exposure but the information is gathered from the chart and also consultants notes Review of Systems As per the chart Past Medical History Past Medical History: Hypertension Additional Past Medical History / Comment(s): Svt History of Any Multi-Drug Resistant Organisms: None Reported Past Surgical History: Appendectomy, Hernia Repair Additional Past Surgical History / Comment(s): Right Shoulder Surgery Past Psychological History: No Psychological Hx Reported Smoking Status: Never smoker Past Alcohol Use History: None Reported Past Drug Use History: None Reported Medications and Allergies Home Medications Medication Instructions Recorded Confirmed Type Azithromycin [Zithromax Z-pack (6 0 mg PO DIRECTED 5 Days #6 tab 10/10/21 Rx tabs)] Budesonide-Formot 160-4.5 Mcg 2 puff INHALATION BID #1 each 10/10/21 Rx [Symbicort 160-4.5 Mcg Inhaler] Dm/Acetaminophen/Doxylamine [Vicks 30 ml PO Q6H PRN 10/10/21 10/10/21 History Nyquil Cold-Flu Liquid] Metoprolol Succinate [Toprol XL] 50 mg PO DAILY 10/10/21 10/10/21 History Triamcinolone Acetonide [Nasacort] 1 spray EA NOSTRIL BID 10 Days 10/10/21 Rx #10.8 ml Allergies Allergy/AdvReac Type Severity Reaction Status Date / Time No Known Allergies Allergy Verified 10/10/21 08:07 Physical Exam Vitals: Vital Signs Temp Pulse Pulse Resp BP BP Pulse Ox 10/10/21 16:00 73 16 130/77 95 10/10/21 15:07 78 16 136/83 96 10/10/21 13:42 78 16 138/93 96 10/10/21 12:31 98.4 F 63 18 124/85 97 10/10/21 09:15 98.5 F 67 18 111/78 97 10/10/21 08:49 67 18 108/78 97 10/10/21 08:21 99.2 F 67 96 10/10/21 04:01 103.1 F H 99 16 136/92 97 Intake and Output 10/10/21 10/10/21 10/10/21 06:59 14:59 22:59 Other: Weight 112.945 kg This patient is not personally examined. Please refer to primary physician notes and ER documentation for further details Results 10/10/21 04:03 10/10/21 04:03 Cardiac Enzymes 10/10/21 10/10/21 10/10/21 Range/Units 04:03 04:03 07:30 AST 67 H (17-59) U/L Lactate Dehydrogenase 609 (313-618) U/L Troponin I 0.086 H* 0.068 H* (0.000-0.034) ng/mL 10/10/21 Range/Units 09:53 AST (17-59) U/L Lactate Dehydrogenase (313-618) U/L Troponin I 0.220 H* (0.000-0.034) ng/mL Coagulation 10/10/21 Range/Units 04:03 PT 11.5 (9.0-12.0) sec APTT 26.6 (22.0-30.0) sec CBC 10/10/21 Range/Units 04:03 WBC 12.0 H (3.8-10.6) k/uL RBC 5.46 (4.30-5.90) m/uL Hgb 15.9 (13.0-17.5) gm/dL Hct 47.7 (39.0-53.0) % Plt Count 161 (150-450) k/uL Comprehensive Metabolic Panel 10/10/21 Range/Units 04:03 Sodium 135 L (137-145) mmol/L Potassium 3.4 L (3.5-5.1) mmol/L Chloride 102 (98-107) mmol/L Carbon Dioxide 19 L (22-30) mmol/L BUN 14 (9-20) mg/dL Creatinine 1.37 H (0.66-1.25) mg/dL Glucose 125 H (74-99) mg/dL Calcium 9.0 (8.4-10.2) mg/dL AST 67 H (17-59) U/L ALT 89 H (4-49) U/L Alkaline Phosphatase 133 H (38-126) U/L Total Protein 7.7 (6.3-8.2) g/dL Albumin 4.1 (3.5-5.0) g/dL Intake and Output 10/10/21 10/10/21 10/10/21 06:59 14:59 22:59 Other: Weight 112.945 kg 10/10/21 04:03 10/10/21 04:03 EKG Interpretations (text) Sinus rhythm with a diffuse T-wave changes inferolateral leads. Monitor strip showed evidence of SVT Assessment and Plan (1) SVT (supraventricular tachycardia) Status: Acute Code(s): I47.1 - SUPRAVENTRICULAR TACHYCARDIA SNOMED Code(s): 4120759 (2) Coronavirus infection Status: Acute Code(s): B34.2 - CORONAVIRUS INFECTION, UNSPECIFIED SNOMED Code(s): 111967167 (3) Pneumonia due to COVID-19 virus Status: Acute Code(s): U07.1 - COVID-19; J12.82 - PNEUMONIA DUE TO CORONAVIRUS DISEASE 2019 SNOMED Code(s): 525769060176870433 (4) Troponin level elevated Status: Acute Code(s): R77.8 - OTHER SPECIFIED ABNORMALITIES OF PLASMA PROTEINS SNOMED Code(s): 597928012 (5) Abnormal EKG Status: Acute Code(s): R94.31 - ABNORMAL ELECTROCARDIOGRAM [ECG] [EKG] SNOMED Code(s): 204468327 Plan: At this point patient is back in sinus rhythm and apparently not having any chest pain. His echocardiogram showed normal LV function without any wall motion of pulmonary disease. It is felt that his troponin elevation is most probably related to demand supply mismatch related to SVT. Abnormal T wave changes also felt to be related to SVT. However further monitoring may be necessary in the future testing may be necessary to rule out underlying ischemic heart disease. Thank you
== END 2021-10-10 17:17 | disposition home or self-care (01) ==
LOC: EC 03:50 → 3SCARD 07:13
PROVIDERS: ADMIT Internal Medicine Geriatric Medicine; ATTEND Internal Medicine Geriatric Medicine
DX: U07.1 COVID-19 (principal); J12.82 Pneumonia due to coronavirus disease 2019; I47.1 Supraventricular tachycardia; I10 Essential (primary) hypertension; F41.9 Anxiety disorder, unspecified; Z79.51 Long term (current) use of inhaled steroids; Z79.899 Other long term (current) drug therapy; Z90.49 Acquired absence of other specified parts of digestive tract; Z98.890 Other specified postprocedural states; R79.89 Other specified abnormal findings of blood chemistry
CPT/HCPCS: 96361; 96374; 96375; 99285; 36415; 93005; 93306; 85379; 83880; 80053; 83605; 83615; 83735; 84100; 84443; 84484; 85025; 85610; 85730; 86140; 81001; 87636; 71045; 71275; G0378; M0239; J1100; J1885; Q9967; J3490

== ENCOUNTER 2025-02-01 19:25 | Observation (INO) | payer BC, OTHER ==
[2025-02-01] MEDS: SODIUM CHLORIDE 0.9% 1,000 ML IV ONE (19:45)
[2025-02-01 20:00] LABS: Basophils # (A) 0.07 10*3/uL (0.00-0.10); Basophils % (A) 0.6 %; Eosinophils # (A) 0.23 10*3/uL (0.04-0.35); Eosinophils % (A) 1.9 %; HCT 48.3 % (39.6-50.0); HGB 16.6 g/dL (13.0-17.0); Lymphocytes # (A) 4.22 10*3/uL (0.90-5.00); Lymphocytes % (A) 35.7 %; MCH 29.2 pg (27.0-32.0); MCHC 34.4 g/dL (32.0-37.0); Mean Platelet Volume 10.5 fL (9.5-12.2); Monocytes # (A) 1.04 10*3/uL (0.20-1.00); Monocytes % (A) 8.8 %; Neutrophils # (A) 6.18 10*3/uL (1.80-7.70); Neutrophils % (A) 52.3 %; Platelet Count 235 10*3/uL (140-440); RBC 5.68 10*6/uL (4.40-5.60); RDW 13.5 % (11.5-14.5); WBC 11.82 10*3/uL (4.50-10.00)
[2025-02-01 20:16] LABS: Partial Thromboplastin Time 26.1 sec (22.0-30.0); Prothrombin Time 10.7 sec (10.0-12.5)
[2025-02-01 20:17] LABS: ALT 26 U/L (4-49); AST 33 U/L (17-59); African American GFR (CKD) 71 (>60 ml/min/1.73 sqM); Albumin 4.9 g/dL (3.5-5.0); Alkaline Phosphatase 77 U/L (38-126); Anion Gap 10 mmol/L; Blood Urea Nitrogen 15 mg/dL (9-20); Calcium 10.5 mg/dL (8.4-10.2); Carbon Dioxide 25 mmol/L (22-30); Chloride 106 mmol/L (98-107); Glucose 122 mg/dL (74-99); Magnesium 2.1 mg/dL (1.6-2.3); Non-African American GFR(CKD) 61 (>60 ml/min/1.73 sqM); Potassium 3.8 mmol/L (3.5-5.1); Sodium 141 mmol/L (137-145); Total Protein 8.3 g/dL (6.3-8.2)
--- NOTE | 2025-02-01 20:22 | ED ---
General Adult HPI - General Chief complaint: Arrhythmia/Palpitations Stated complaint: Heart Palpitations, Tachy Time Seen by Provider: 02/01/25 19:34 Source: patient, RN notes reviewed, old records reviewed Mode of arrival: ambulatory Limitations: no limitations - History of Present Illness Initial comments: 49-year-old male presenting with palpitation, racing heart sensation over the past 2 hours. Patient has history of SVT. He has a prescription for metoprolol but takes his medication inconsistently. He has seen cardiology previously. No other medications. He admits that he did not have much to eat or drink today. No alcohol. No drugs. No chest pain. - Related Data Home Medications Medication Instructions Recorded Confirmed Dm/Acetaminophen/Doxylamine [Vicks 30 ml PO Q6H PRN 10/10/21 10/10/21 Nyquil Cold-Flu Liquid] Metoprolol Succinate [Toprol XL] 50 mg PO DAILY 10/10/21 10/10/21 Previous Rx's Medication Instructions Recorded Azithromycin [Zithromax Z-pack (6 0 mg PO DIRECTED 5 Days #6 tab 10/10/21 tabs)] Budesonide-Formot 160-4.5 Mcg 2 puff INHALATION BID #1 each 10/10/21 [Symbicort 160-4.5 Mcg Inhaler] Triamcinolone Acetonide [Nasacort] 1 spray EA NOSTRIL BID 10 Days 10/10/21 #10.8 ml Allergies Allergy/AdvReac Type Severity Reaction Status Date / Time No Known Allergies Allergy Verified 02/01/25 19:31 Review of Systems ROS Statement: Those systems with pertinent positive or pertinent negative responses have been documented in the HPI. ROS Other: All systems not noted in ROS Statement are negative. Past Medical History Past Medical History: Hypertension Additional Past Medical History / Comment(s): Svt History of Any Multi-Drug Resistant Organisms: None Reported Past Surgical History: Appendectomy, Hernia Repair Additional Past Surgical History / Comment(s): Right Shoulder Surgery Past Psychological History: No Psychological Hx Reported Smoking Status: Never smoker Past Alcohol Use History: None Reported Past Drug Use History: None Reported General Exam Limitations: no limitations General appearance: alert, in no apparent distress Head exam: Present: atraumatic, normocephalic Eye exam: Present: normal appearance, PERRL Respiratory exam: Present: normal lung sounds bilaterally. Absent: respiratory distress Cardiovascular Exam: Present: normal rhythm, tachycardia GI/Abdominal exam: Present: soft. Absent: distended, tenderness, guarding Extremities exam: Present: normal inspection, normal capillary refill. Absent: pedal edema, calf tenderness Neurological exam: Present: alert, oriented X3, CN II-XII intact. Absent: motor sensory deficit Psychiatric exam: Present: normal affect, normal mood Skin exam: Present: warm, dry, intact Course Vital Signs 02/01/25 02/01/25 02/01/25 19:28 19:55 22:10 Temperature 97.5 F L Pulse Rate 182 H 93 80 Respiratory 20 16 18 Rate Blood Pressure 181/121 144/103 O2 Sat by Pulse 98 99 97 Oximetry - Reevaluation(s) Reevaluation #1: 02/01/25 20:44 Patient reevaluated, remains in sinus rhythm, no chest pain. Medical Decision Making - Medical Decision Making Was pt. sent in by a medical professional or institution (, PA, CREASING MACHINE OPERATOR, urgent care, hospital, or long-term...) When possible be specific @ -No Did you speak to anyone other than the patient for history (EMS, parent, family, police, friend...)? What history was obtained from this source @ -No Did you review nursing and triage notes (agree or disagree)? Why? @ -I reviewed and agree with nursing and triage notes Were old charts reviewed (outside hosp., previous admission, EMS record, old EKG, old radiological studies, urgent care reports/EKG's, long-term records)? Report findings @ -No old charts were reviewed Differential Palpitations Ventricular arrhythmias, atrial arrhythmias, myocardial infarction, anemia, thyrotoxicosis, electrolyte imbalance, hypokalemia, pulmonary embolism, p ulmonary disease, drugs, alcohol, anxiety, stress.... This is not meant to be an all-inclusive list. EKG interpreted by me (3pts min.). @Initial EKG at 1938, SVT rate of 175, QRS duration 105, QTc 316 Repeat EKG at 1949, sinus rhythm ventricular rate of 95, NH interval [address] segment elevation. X-rays interpreted by me (1pt min.). @ -None done CT interpreted by me (1pt min.). @ -None done U/S interpreted by me (1pt. min.). @ -None done What testing was considered but not performed or refused? (CT, X-rays, U/S, labs)? Why? @ -None What meds were considered but not given or refused? Why? @ -None Did you discuss the management of the patient with other professionals (professionals i.e. , PA, CREASING MACHINE OPERATOR, lab, RT, psych nurse, perinatal social worker, telephone sales representative, teacher, artillery officer, director of casework services)? Give summary @EMH Was smoking cessation discussed for >3mins.? @ -No Was critical care preformed (if so, how long)? @Yes, 35 minutes Were there social determinants of health that impacted care today? How? (Homelessness, low income, unemployed, alcoholism, drug addiction, transportation, low edu. Level, literacy, decrease access to med. care, fdc, rehab)? @ -No Was there de-escalation of care discussed even if they declined (Discuss DNR or withdrawal of care, Hospice)? DNR status @ -No What co-morbidities impacted this encounter? (DM, HTN, Smoking, COPD, CAD, Cancer, CVA, ARF, Chemo, Hep., AIDS, mental health diagnosis, sleep apnea, morbid obesity)? @ -History of SVT Was patient admitted / discharged? Hospital course, mention meds given and route, prescriptions, significant lab abnormalities, going to OR and other pertinent info. @ -49-year-old male presenting with palpitations, no chest pain, found to be in SVT. Modified positional Valsalva was successful in converting this patient from SVT into sinus rhythm. I did obtain laboratory testing which revealed normal CBC, normal electrolytes, minimally elevated troponin. Patient will be observed for serial cardiac enzymes. Cardiology consultation. Undiagnosed new problem with uncertain prognosis? @ -No Drug Therapy requiring intensive monitoring for toxicity (Heparin, Nitro, Insulin, Cardizem)? @ -No Were any procedures done? @ -No Diagnosis/symptom? @SVT, elevated troponin Acute, or Chronic, or Acute on Chronic? @ -[Acute Uncomplicated (without systemic symptoms) or Complicated (systemic symptoms)? @ -Default Side effects of treatment? @ -No Exacerbation, Progression, or Severe Exacerbation? @ -No Poses a threat to life or bodily function? How? (Chest pain, USA, AR, pneumonia, PE, COPD, DKA, ARF, appy, cholecystitis, CVA, Diverticulitis, Homicidal, Suicidal, threat to staff... and all critical care pts) @Yes, arrhythmia, ACS - Lab Data Result diagrams: 02/01/25 19:53 02/01/25 19:53 Lab Results 02/01/25 02/01/25 02/01/25 Range/Units 19:53 19:53 19:53 WBC 11.82 H (4.50-10.00) 10*3/uL RBC 5.68 H (4.40-5.60) 10*6/uL Hgb 16.6 (13.0-17.0) g/dL Hct 48.3 (39.6-50.0) % MCV 85.0 (80.0-97.0) fL MCH 29.2 (27.0-32.0) pg MCHC 34.4 (32.0-37.0) g/dL Plt Count 235 (140-440) 10*3/uL MPV 10.5 (9.5-12.2) fL Immature Gran % (Auto) 0.7 % Neutrophils % 52.3 % Lymphocytes % 35.7 % Monocytes % 8.8 % Eosinophils % 1.9 % Basophils % 0.6 % Immature Gran # 0.08 H (0.00-0.04) 10*3/uL Neutrophils # 6.18 (1.80-7.70) 10*3/uL Lymphocytes # 4.22 (0.90-5.00) 10*3/uL Monocytes # 1.04 H (0.20-1.00) 10*3/uL Eosinophils # 0.23 (0.04-0.35) 10*3/uL Basophils # 0.07 (0.00-0.10) 10*3/uL PT 10.7 (10.0-12.5) sec INR 1.0 (<1.2) APTT 26.1 (22.0-30.0) sec Sodium 141 (137-145) mmol/L Potassium 3.8 (3.5-5.1) mmol/L Chloride 106 (98-107) mmol/L Carbon Dioxide 25 (22-30) mmol/L Anion Gap 10 mmol/L BUN 15 (9-20) mg/dL Creatinine 1.37 H (0.66-1.25) mg/dL Est GFR (CKD-EPI)AfAm 71 (>60 ml/min/1.73 sqM) Est GFR (CKD-EPI)NonAf 61 (>60 ml/min/1.73 sqM) Glucose 122 H (74-99) mg/dL Calcium 10.5 H (8.4-10.2) mg/dL Magnesium 2.1 (1.6-2.3) mg/dL Total Bilirubin 1.0 (0.2-1.3) mg/dL AST 33 (17-59) U/L ALT 26 (4-49) U/L Alkaline Phosphatase 77 (38-126) U/L Troponin I (0.000-0.034) ng/mL Total Protein 8.3 H (6.3-8.2) g/dL Albumin 4.9 (3.5-5.0) g/dL 02/01/25 02/01/25 Range/Units 19:53 21:53 WBC (4.50-10.00) 10*3/uL RBC (4.40-5.60) 10*6/uL Hgb (13.0-17.0) g/dL Hct (39.6-50.0) % MCV (80.0-97.0) fL MCH (27.0-32.0) pg MCHC (32.0-37.0) g/dL Plt Count (140-440) 10*3/uL MPV (9.5-12.2) fL Immature Gran % (Auto) % Neutrophils % % Lymphocytes % % Monocytes % % Eosinophils % % Basophils % % Immature Gran # (0.00-0.04) 10*3/uL Neutrophils # (1.80-7.70) 10*3/uL Lymphocytes # (0.90-5.00) 10*3/uL Monocytes # (0.20-1.00) 10*3/uL Eosinophils # (0.04-0.35) 10*3/uL Basophils # (0.00-0.10) 10*3/uL PT (10.0-12.5) sec INR (<1.2) APTT (22.0-30.0) sec Sodium (137-145) mmol/L Potassium (3.5-5.1) mmol/L Chloride (98-107) mmol/L Carbon Dioxide (22-30) mmol/L Anion Gap mmol/L BUN (9-20) mg/dL Creatinine (0.66-1.25) mg/dL Est GFR (CKD-EPI)AfAm (>60 ml/min/1.73 sqM) Est GFR (CKD-EPI)NonAf (>60 ml/min/1.73 sqM) Glucose (74-99) mg/dL Calcium (8.4-10.2) mg/dL Magnesium (1.6-2.3) mg/dL Total Bilirubin (0.2-1.3) mg/dL AST (17-59) U/L ALT (4-49) U/L Alkaline Phosphatase (38-126) U/L Troponin I 0.057 H* 0.136 H* (0.000-0.034) ng/mL Total Protein (6.3-8.2) g/dL Albumin (3.5-5.0) g/dL Critical Care Time Critical Care Time: Yes Total Critical Care Time: 35 Disposition Clinical Impression: SVT (supraventricular tachycardia), Troponin level elevated Disposition: ADMITTED IP TO THIS [facility] Condition: Stable Instructions (If sedation given, give patient instructions): Supraventricular Tachycardia (ED) Is patient prescribed a controlled substance at d/c from ED?: No Referrals: Andrei Lopez [Primary Care Provider] - 1-2 days Time of Disposition: 22:26
[2025-02-01] MEDS ORDERED: NALOXONE 0.4 MG/ML 1 ML VIAL IV PRN (22:26)
[2025-02-01] MEDS ORDERED: ACETAMINOPHEN TAB 325 MG TAB PO PRN (22:26)
[2025-02-01] MEDS: METOPROLOL SUCCINATE (ER) 50 MG TAB.ER.24H PO STA (22:37)
[2025-02-01] MEDS: SODIUM CHLORIDE 0.9% 1,000 ML IV SCH (22:37)
[2025-02-01] MEDS: ASPIRIN 325 MG TAB PO STA (22:37)
[2025-02-02] MEDS: hydrALAZINE HCL 25 MG TAB PO STA (01:40)
[2025-02-02] MEDS ORDERED: HEPARIN SODIUM 1,000 UN/ML (10ML VL) IV PRN (02:51)
[2025-02-02] MEDS: HEPARIN SOD,PORK IN 0.45% NACL 25,000 UNIT in 0.45% NACL 1 250ML.BAG IV SCH (03:45)
[2025-02-02 04:10] LABS: Basophils # (A) 0.08 10*3/uL (0.00-0.10); Basophils % (A) 0.8 %; Eosinophils # (A) 0.25 10*3/uL (0.04-0.35); Eosinophils % (A) 2.5 %; HCT 46.4 % (39.6-50.0); HGB 15.3 g/dL (13.0-17.0); Lymphocytes # (A) 3.11 10*3/uL (0.90-5.00); Lymphocytes % (A) 31.5 %; MCH 28.7 pg (27.0-32.0); MCV 87.1 fL (80.0-97.0); Mean Platelet Volume 10.6 fL (9.5-12.2); Monocytes # (A) 0.92 10*3/uL (0.20-1.00); Monocytes % (A) 9.3 %; Neutrophils # (A) 5.43 10*3/uL (1.80-7.70); Neutrophils % (A) 55.2 %; Platelet Count 198 10*3/uL (140-440); RBC 5.33 10*6/uL (4.40-5.60); RDW 13.8 % (11.5-14.5); WBC 9.86 10*3/uL (4.50-10.00)
[2025-02-02] MEDS ORDERED: METOPROLOL TARTRATE 25 MG TAB PO SCH (09:00)
[2025-02-02] MEDS: DILTIAZEM ORAL 30 MG TAB PO SCH (10:16)
[2025-02-02] MEDS: LOSARTAN 25 MG TAB PO SCH (10:16)
[2025-02-02] MEDS: ASPIRIN 81 MG PO SCH (10:16)
[2025-02-02] MEDS ORDERED: ALPRAZolam 0.5 MG TAB PO PRN (11:07)
[2025-02-02] MEDS ORDERED: NITROGLYCERIN SL TABS 0.4 MG TAB SUBLINGUAL PRN (11:07)
[2025-02-02] MEDS ORDERED: ALPRAZolam 0.25 MG TAB PO PRN (11:07)
--- NOTE | 2025-02-02 12:23 | P.CRDCN ---
History of Present Illness Consult date: 02/02/25 Reason for Consult (text): SVT, elevated troponin History of present illness: This is a 49-year-old male patient previously seen by Dr. Masterson in 2019 with past medical history of SVT. We have been asked to evaluate the patient for SVT and elevated troponins. Patient states that he has been dealing with palpitations for about 8 years but now it has becoming more frequent about 1-2 episodes per month. He has followed up in the past with Dr. Masterson and also with a cap and hat production supervisor in [place] and with [facility]. He has had monit ors and stress test but no procedures done. He denies tobacco use, marijuana use illicit drug use, no alcohol use. He has a family medical history of father dying at age 60 from [place] and a sister receiving cardiac stents in her 40s. He denies chest pain. He does have some dizziness and lightheadedness. Onset of symptoms are at rest. He is not doing strenuous activity. He states he is supposed to be on metoprolol but due to insurance issue and lack of follow-up with his PCP he does not have the medication and has not been taking it. Pressure on presentation was 181/120 and now 161/107. Heart rate has been in the 60s and 70s, pulse ox 98% on room air. Patient has been started on a hepa rin drip and is status post metoprolol succinate [address] Brian discussed with patient recommendation for cardiac catheterization. -EKG: SVT, possible AVRT, telemetry is sinus rhythm -Laboratory studies: Initial WBC 11.8 now 9.8, hemoglobin 15.3. Creatinine 1.37, electrolytes normal. Troponin 0.057, 0.136, 0.218 -Home cardiac medications: None -Event monitor 03/19 - 04/08/2020 revealed SVT sinus rhythm with couplets, PVCs. -Exercise stress test performed in the office in 08/03/2018 revealed excellent exercise tolerance. No symptoms typical of angina. Dysrhythmias in the form of occasional PVCs with PACs in recovery. Moderately positive electrocardiographic stress test. Review Of Systems: At the time of my exam: CONSTITUTIONAL: Denies fever or chills. HEENT: Denies blurred vision, vision changes, or eye pain. Denies hemoptysis CARDIOVASCULAR: Denies chest pain. Denies orthopnea. Denies PND. Denies palpitations RESPIRATORY: Denies shortness of breath. GASTROINTESTINAL: Denies abdominal pain. Denies nausea or vomiting. HEMATOLOGIC: Denies bleeding disorders. GENITOURINARY: Denies any blood in urine. SKIN: Denies puritis. Denies rash. Physical examination: Gen: This is a 49-year-old black male in no acute distress. VS: reviewed HEENT: Head is atraumatic, normocephalic. Pupils equal, round. Sclerae is anicteric. NECK: Supple. No JVD. LUNGS: Clear to auscultation. No wheezes or rhonchi. No intercostal retractions. HEART: Regular rate and rhythm. No murmur. ABDOMEN: Soft No tenderness. EXTREMITIES: No pedal edema. No calf tenderness. NEUROLOGICAL: Patient is awake, alert and oriented x3. Assessment: SVT Elevated troponin, possible NSTEMI versus secondary to SVT Family history of premature coronary artery disease Plan: Start patient on aspirin 81 mg daily, Lipitor 40 mg daily, Cardizem 30 mg 4 times daily, losartan 25 mg daily Continue heparin drip Obtain 2-D echocardiogram and Doppler study to assess cardiac structure and function Schedule patient for cardiac catheterization today with Dr. Brian Further recommendations to follow based upon clinical course Thank you kindly for this consultation. Nurse practitioner note has been reviewed, I agree with documented findings and plan of care. Patient was seen and examined. Past Medical History Past Medical History: Hypertension, Supraventricular Tachycardia (SVT) Additional Past Medical History / Comment(s): Svt History of Any Multi-Drug Resistant Organisms: None Reported Past Surgical History: Appendectomy, Hernia Repair, Orthopedic Surgery Additional Past Surgical History / Comment(s): Right Shoulder Surgery Past Psychological History: No Psychological Hx Reported Smoking Status: Never smoker Past Alcohol Use History: None Reported Past Drug Use History: None Reported - Past Family History Mother Family Medical History: Cancer, Diabetes Mellitus Additional Family Medical History / Comment(s): Colon cancer Father Family Medical History: Myocardial Infarction ([place]) Additional Family Medical History / Comment(s): from [place] at age 60. Sister(s) Family Medical History: CVA/TIA, Diabetes Mellitus, Supraventricular Tachycardia (SVT) Medications and Allergies Home Medications Medication Instructions Recorded Confirmed Type No Known Home Medications 02/02/25 02/02/25 History Allergies Allergy/AdvReac Type Severity Reaction Status Date / Time No Known Allergies Allergy Verified 02/02/25 08:33 Physical Exam Vitals: Vital Signs Temp Pulse Pulse Resp BP BP Pulse Ox 02/02/25 07:00 97.7 F 71 16 161/107 98 02/02/25 05:49 157/96 02/02/25 03:21 97.5 F L 64 17 165/101 98 02/02/25 00:30 97.8 F 70 18 184/114 99 02/02/25 00:00 98.0 F 73 16 147/99 98 02/01/25 23:25 73 16 154/97 98 02/01/25 22:10 80 18 144/103 97 02/01/25 19:55 93 16 99 02/01/25 19:28 97.5 F L 182 H 20 181/121 98 Intake and Output 02/01/25 02/02/25 02/02/25 22:59 06:59 14:59 Other: Voiding Method Toilet # Voids 2 Weight 122.47 kg 122.47 kg Results 02/02/25 03:51 02/01/25 19:53 Cardiac Enzymes 02/01/25 02/01/25 02/01/25 Range/Units 19:53 19:53 21:53 AST 33 (17-59) U/L Troponin I 0.057 H* 0.136 H* (0.000-0.034) ng/mL 02/02/25 Range/Units 01:23 AST (17-59) U/L Troponin I 0.218 H* (0.000-0.034) ng/mL Coagulation 02/01/25 02/02/25 Range/Units 19:53 03:51 PT 10.7 (10.0-12.5) sec APTT 26.1 25.4 (22.0-30.0) sec CBC 02/01/25 02/02/25 Range/Units 19:53 03:51 WBC 11.82 H 9.86 (4.50-10.00) 10*3/uL RBC 5.68 H 5.33 (4.40-5.60) 10*6/uL Hgb 16.6 15.3 (13.0-17.0) g/dL Hct 48.3 46.4 (39.6-50.0) % Plt Count 235 198 (140-440) 10*3/uL Comprehensive Metabolic Panel 02/01/25 Range/Units 19:53 Sodium 141 (137-145) mmol/L Potassium 3.8 (3.5-5.1) mmol/L Chloride 106 (98-107) mmol/L Carbon Dioxide 25 (22-30) mmol/L BUN 15 (9-20) mg/dL Creatinine 1.37 H (0.66-1.25) mg/dL Glucose 122 H (74-99) mg/dL Calcium 10.5 H (8.4-10.2) mg/dL AST 33 (17-59) U/L ALT 26 (4-49) U/L Alkaline Phosphatase 77 (38-126) U/L Total Protein 8.3 H (6.3-8.2) g/dL Albumin 4.9 (3.5-5.0) g/dL Current Medications Generic Name Dose Route Start Last Admin Trade Name Freq PRN Reason Stop Dose Admin Acetaminophen 650 mg 02/01/25 22:26 Acetaminophen Tab 325 Mg Tab PO Q6HR PRN Mild Pain or Fever > 100.5 Heparin Sodium (Porcine) 0 unit 02/02/25 02:51 Heparin Sodium 1,000 Un/Ml (10ml Vl) IV PER PROTOCOL PRN Low PTT Protocol Sodium Chloride 1,000 mls @ 75 mls/hr 02/01/25 22:30 02/01/25 22:37 Saline 0.9% IV 75 mls/hr .[id number] MARIBEL Administration Heparin Sodium/Sodium Chloride 250 mls @ 10 mls/hr 02/02/25 03:00 02/02/25 03:45 25,000 unit/ Sodium Chloride IV 8.165 units/kg/hr .Q24H MARIBEL 10 mls/hr Administration Protocol 8.165 UNITS/KG/HR Naloxone HCl 0.2 mg 02/01/25 22:26 Naloxone 0.4 Mg/Ml 1 Ml Vial IV Q2M PRN Opioid Reversal Intake and Output 02/01/25 02/02/25 02/02/25 22:59 06:59 14:59 Other: Voiding Method Toilet # Voids 2 Weight 122.47 kg 122.47 kg 02/02/25 03:51 02/01/25 19:53
[2025-02-02] MEDS: IV FLUID CONTINUATION 500 ML IV ONE (12:26)
[2025-02-02] MEDS: HEPARIN SODIUM,PORCINE (1 ML) 2,500 UNIT in SODIUM CHLORIDE 0.9% 250 ML IRRIGATION PRN (12:27)
[2025-02-02] MEDS: HEPARIN SODIUM,PORCINE 10,000 UNIT in SODIUM CHLORIDE 0.9% 1,000 ML IRRIGATION PRN (12:27)
[2025-02-02] MEDS: fentaNYL (PF) 50 MCG/ML 2 ML AMP IVP ONE (12:30)
[2025-02-02] MEDS: MIDAZOLAM 2 MG/2 ML VIAL IVP ONE (12:30)
[2025-02-02] MEDS: LIDOCAINE 1% INJ 10MG/ML (20 ML MDV) SQ ONE (12:33)
[2025-02-02] MEDS: VERAPAMIL SYRINGE (5 MG/10 ML) INTRAARTER ONE (12:34)
[2025-02-02] MEDS: HEPARIN SODIUM 1,000 UN/ML (10ML VL) IV ONE (12:37)
--- NOTE | 2025-02-02 12:44 | P.HPIM ---
History of Present Illness H&P Date: 02/02/25 History of present illness; Patient is a 49-year-old male with history of SVT presenting with palpitations. Symptoms began last night at rest. He states he has a prescription for metoprolol which he takes inconsistently. He has seen cardiology previously. He states he did not have much to eat or drink today. He denies alcohol or drug use. He denies chest pain, diaphoresis and shortness of breath. Spoke with the ER physician, patient admission was accepted by internal medicine service for treatment. REVIEW OF SYSTEMS: Pertinent positives and negatives noted in HPI. PHYSICAL EXAMINATION: Vitals reviewed GENERAL: Resting comfortably in bed. Obese. EYES: PERRL, no scleral injection or icterus. No vision loss HENT: Normocephalic, atraumatic, hearing grossly intact, moist mucous membranes NECK: No tracheal deviation, full range of motion. CARDIOVASCULAR: S1 and S2 present. Tachycardic. No murmurs, rubs, or gallops. PULMONARY: Chest is clear to auscultation, no wheezing, rhonchi, or crackles. ABDOMEN: Soft, nontender, nondistended. No palpable organomegaly. MUSCULOSKELETAL: No apparent joint swelling and deformities. EXTREMITIES: No apparent cyanosis, clubbing. No pedal edema. NEUROLOGICAL: Alert and oriented. Gross neurological examination with no apparent focal deficits. SKIN: No apparent rashes. ER FINDINGS: Labs significant for WBC 11.8, sodium 141, potassium 3.8, creatinine 1.37, glucose 122, troponin 0.057 => 0.136 => 0.218, APTT 26.1 => 31.8 EKG independently interpreted showed SVT heart rate of 175, QTc 316, nonspecific ST and T wave abnormality Assessment and Plan: In summary, patient is a 49-year-old male with history of SVT presenting with palpitations. #SVT #Elevated troponin, possible NSTEMI versus secondary to SVT #Family history of premature coronary artery disease EKG with findings of SVT rate 175 Begin aspirin 81 mg daily, Lipitor 40 mg daily, Cardizem 30 mg 4 times daily, losartan 25 mg daily Continue heparin ggt Echocardiogram pending TSH, A1c, lipid panel, proBNP pending Cardiac catheterization planned today Cardiology consulted #KEELEY vs CKD Today's creatinine 1.37, last known creatinine 1.37 in 09/2021 Monitor BMP #Leukocytosis, reactive, resolved Chronic Medical Conditions #SVT DVT ppx: Heparin Code status: Full code F: P.o. E: Replete as needed N: Heart healthy diet A: Ambulatory Anticipated discharge place: Home Anticipated discharge time: Today or tomorrow Dr. Arevalo seen patient with resident, present during exam, and agreed with findings. Dictation was produced using [employer] dictation software. Please excuse any grammatical, word or spelling errors. Past Medical History Past Medical History: Hypertension, Supraventricular Tachycardia (SVT) Additional Past Medical History / Comment(s): Svt History of Any Multi-Drug Resistant Organisms: None Reported Past Surgical History: Appendectomy, Hernia Repair, Orthopedic Surgery Additional Past Surgical History / Comment(s): Right Shoulder Surgery Past Psychological History: No Psychological Hx Reported Smoking Status: Never smoker Past Alcohol Use History: None Reported Past Drug Use History: None Reported - Past Family History Mother Family Medical History: Cancer, Diabetes Mellitus Additional Family Medical History / Comment(s): Colon cancer Father Family Medical History: Myocardial Infarction ([place]) Additional Family Medical History / Comment(s): from [place] at age 60. Sister(s) Family Medical History: CVA/TIA, Diabetes Mellitus, Supraventricular Tachycardia (SVT) Medications and Allergies Home Medications Medication Instructions Recorded Confirmed Type No Known Home Medications 02/02/25 02/02/25 History Allergies Allergy/AdvReac Type Severity Reaction Status Date / Time No Known Allergies Allergy Verified 02/02/25 08:33 Physical Exam Vitals: Vital Signs Temp Pulse Pulse Resp BP BP Pulse Ox 02/02/25 07:00 97.7 F 71 16 161/107 98 02/02/25 05:49 157/96 02/02/25 03:21 97.5 F L 64 17 165/101 98 02/02/25 00:30 97.8 F 70 18 184/114 99 02/02/25 00:00 98.0 F 73 16 147/99 98 02/01/25 23:25 73 16 154/97 98 02/01/25 22:10 80 18 144/103 97 02/01/25 19:55 93 16 99 02/01/25 19:28 97.5 F L 182 H 20 181/121 98 Intake and Output 02/01/25 02/02/25 02/02/25 22:59 06:59 14:59 Other: Voiding Method Toilet # Voids 2 Weight 122.47 kg 122.47 kg Results CBC & Chem 7: 02/02/25 03:51 02/01/25 19:53 Labs: Abnormal Lab Results - Last 24 Hours (Table) 02/01/25 02/01/25 02/01/25 Range/Units 19:53 19:53 19:53 WBC 11.82 H (4.50-10.00) 10*3/uL RBC 5.68 H (4.40-5.60) 10*6/uL Immature Gran # 0.08 H (0.00-0.04) 10*3/uL Monocytes # 1.04 H (0.20-1.00) 10*3/uL Creatinine 1.37 H (0.66-1.25) mg/dL Glucose 122 H (74-99) mg/dL Calcium 10.5 H (8.4-10.2) mg/dL Troponin I 0.057 H* (0.000-0.034) ng/mL Total Protein 8.3 H (6.3-8.2) g/dL 02/01/25 02/02/25 02/02/25 Range/Units 21:53 01:23 03:51 WBC (4.50-10.00) 10*3/uL RBC (4.40-5.60) 10*6/uL Immature Gran # 0.07 H (0.00-0.04) 10*3/uL Monocytes # (0.20-1.00) 10*3/uL Creatinine (0.66-1.25) mg/dL Glucose (74-99) mg/dL Calcium (8.4-10.2) mg/dL Troponin I 0.136 H* 0.218 H* (0.000-0.034) ng/mL Total Protein (6.3-8.2) g/dL Thrombosis Risk Factor Assmnt - Choose All That Apply Any of the Below Risk Factors Present?: Yes Each Factor Represents 1 point: Age 41-60 years, Obesity (BMI >25) Thrombosis Risk Factor Assessment Total Risk Factor Score: 2 Thrombosis Risk Factor Assessment Level: Low Risk
[2025-02-02] MEDS: IOPAMIDOL-370 100ML BTL INJ ONE (12:49)
--- NOTE | 2025-02-02 13:00 | CA ---
Transthoracic Echo Report Name: Sanjay Pretty Age: 49 Gender: M : 1975 Exam Date: 02/02/2025 08:52 Exam Location: [facility] Ht (in): Wt (lb): Ordering Physician: Lizeth Bahena Attending/Referring Phys: [id number], Josef [employer] Skyla Rene, MANN Procedure CPT: Indications: LVF Cardiac Hx: Technical Quality: Fair Contrast 1: Total Dose (mL): Contrast 2: Total Dose (mL): MEASUREMENTS (Male / Female) Normal Values 2D ECHO LV Diastolic Diameter PLAX 4.8 cm 4.2 - 5.9 / 3.9 - 5.3 cm LV Systolic Diameter PLAX 3.6 cm IVS Diastolic Thickness 1.1 cm 0.6 - 1.0 / 0.6 - 0.9 cm LVPW Diastolic Thickness 1.6 cm 0.6 - 1.0 / 0.6 - 0.9 cm LV Relative Wall Thickness 0.6 RV Internal Dim ED PLAX 2.6 cm LA Systolic Diameter LX 4.3 cm 3.0 - 4.0 / 2.7 - 3.8 cm LV Diastolic Volume MOD BP 83.5 cm??? 67 - 155 / 56 - 104 cm??? LV Systolic Volume MOD BP 40.5 cm??? 22 - 58 / 19 - 49 cm??? LV Ejection Fraction MOD BP 51.4 % >= 55 % LV Diastolic Volume MOD 4C 81.0 cm??? LV Systolic Volume MOD 4C 43.2 cm??? LV Ejection Fraction MOD 4C 46.7 % LV Diastolic Length 4C 7.9 cm LV Systolic Length 4C 6.5 cm LV Diastolic Volume MOD 2C 84.3 cm??? LV Systolic Volume MOD 2C 37.6 cm??? LV Ejection Fraction MOD 2C 55.4 % LV Diastolic Length 2C 7.6 cm LV Systolic Length 2C 6.4 cm LA Volume 78.9 cm??? 18 - 58 / 22 - 52 cm??? M-MODE Aortic Root Diameter MM 3.9 cm LA Systolic Diameter MM 4.4 cm LA Ao Ratio MM 1.1 AV Cusp Separation MM 1.7 cm DOPPLER MV Area PHT 2.9 cm??? Mitral E Point Velocity 68.9 cm/s Mitral A Point Velocity 74.4 cm/s Mitral E to A Ratio 0.9 MV Deceleration Time 262.1 ms FINDINGS Left Ventricle Left ventricular ejection fraction is estimated at 50-55%. Mildly increased septal wall thickness. Mildly decreased left ventricular ejection fraction. Left ventricular cavity size normal. No obvious regional wall motion abnormalities. Right Ventricle Normal right ventricular size and function. Unable to estimate the right ventricular systolic pressure. Right Atrium Mild right atrial dilatation. Left Atrium Mildly increased left atrial diameter. Moderately increased left atrial volume. Mitral Valve Structurally normal mitral valve. Trace to mild mitral regurgitation. No mitral stenosis. Aortic Valve Trileaflet aortic valve. No aortic stenosis. Trace aortic regurgitation. Tricuspid Valve Structurally normal tricuspid valve. Trace tricuspid regurgitation. No tricuspid stenosis. Pulmonic Valve Structurally normal pulmonic valve. Trace pulmonic regurgitation. No pulmonic stenosis. Pericardium No pericardial or pleural effusion. Aorta Mild aortic dilatation at the level of the sinuses of valsalva (root). CONCLUSIONS LVEF 55% No obvious regional wall motion abnormality Mild biatrial dilatation Normal RV size and systolic function No significant valvular dysfunction Previewed by: Dr Kostas Brian (Electronically Signed) Final Date: 02 February 2025 12:59
[2025-02-02] MEDS ORDERED: RX INFO: IV CONTRAST WAS GIVEN 1 EACH MISC MISCELLANE PRN (13:11)
--- NOTE | 2025-02-02 13:11 | P.CARDCATH ---
Date of Procedure: 02/02/25 Description of Procedure: DIAGNOSTIC CORONARY ANGIOGRAPHY and LEFT HEART CATH REPORT PROCEDURES PERFORMED: Left heart catheterization Selective coronary angiography Moderate conscious sedation 8 mins [Ultrasound assisted] Right radial access INDICATION: NSTEMI BRIEF HPI: 49-year-old presented to the [facility] 01/2025 with symptoms of palpitation that lasted for 2 hours. His symptoms were associated with feeling lightheadedness, dizziness, chest pressure and shortness of breath. 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 He also had evidence of elevated troponin with an uptrending creatinine. Because of intermediate to high pretest probability for CAD along with elevated troponin he was ruled in as NSTEMI and was scheduled for heart catheterization procedure. CONSENT: I have explained the procedural steps of above-mentioned procedures in layman's terms to the patient. I discussed the risks (including but not limited to stroke, emergent vascular or cardiac surgery or ), benefits and alternative therapies for the above-mentioned procedure. I discussed the risks of sedation/analgesia and blood product administration (if indicated). The patient has indicated understanding and acceptance of these risks. Conscious Sedation: Patient's ECG, heart rate, blood pressure, pulse oximetry were monitored throughout the duration of procedure under my direct supervision. [2] mg Versed and [50] mcg Fentanyl were used for induction of moderate conscious sedation. Total duration of moderate concious sedation 8 minutes. PROCEDURAL DETAILS: Patient was prepped and draped in sterile fashion. 1% lidocaine was infiltrated over the right radial artery. Right radial access was obtained via modified seldinger technique. [Ultrasound was used for radial access]. Medications: 5mg of verapamil was administed in the radial sheet. 6500 Units of Heparin was administed once the catheter reached the aortic root Wires and Catheter used: J wire was advanced under fluroscopy to get to aortic root. 5 english JR 4 diagnostic catheter was utilized obtain left ventricular pressure and pressure gradint across aortic valve. 5 english JR 4 diagnostic catheter was used to selectively engage the right coronary ostium. 5 english JL 4 diagnostic catheter was utilized to selectively engage the left coronary ostium. There was significant tortuosity noticed at the junction of subclavian artery to the aortic arch therefore catheter manipulation was limited and right coronary artery angiogram but suboptimal. Angiographic images were reviewed in detail. Catheter and wire were removed. Radial sheet was flushed. The right radial sheath was removed and a TR band was placed. Patent hemostasis was achieved. The patient tolerated the procedure well. Patient was transported back to the post catheterization holding area in stable condition. TECHNICAL DETAILS Total contrast used: Isovue [60 ml] Complications: [none] Estimated Blood loss: less than 15 ml HEMODYNAMICS: Aortic Pressure: 145/85 mmHg. LV pressure: 148/10 mmHg. LVEDP 20 mmHg. There was no significant gradient across the aortic valve. SELECTIVE CORONARY ARTERIOGRAPHY: LEFT MAIN: The left main is short and large caliber vessel. It bifurcates into the LAD and circumflex. Left main appears angiographically normal. LEFT ANTERIOR DESCENDING CORONARY ARTERY: LAD is a large caliber vessel which wraps around to the apex. Proximal mid and distal LAD appears angiographically patent. It gives 2 diagonal branches which are medium caliber and appears angiographically patent. LEFT CIRCUMFLEX CORONARY ARTERY: Codominant vessel. LCx is large caliber. Proximal mid and distal LCx appears graphically patent. It gives rise to OM branch which appears graphically patent. RIGHT CORONARY ARTERY: Codominant vessel. Proximal mid and distal RCA appears significantly patent. Distally bifurcates into PDA and PL branch which appears angiographically patent. IMPRESSION: Angiographically patent coronary arteries as described above. Mildly elevated LVEDP PLAN: 125 cc fluids for 4 hours Discharged home in 4 to 6 hours Follow-up in the office in 1-[address] Elkins and thereafter with Dr. Brian. Patient will need EP study and possible AVNRT ablation procedure. Discharge him on aspirin, Lipitor, Cardizem 120 mg CD, losartan 25 mg daily Ask him to maintain blood pressure log at home to show in the office Performing Physician Kostas Brian MD, FACC, RPVI Thank you for allowing [facility] to participate in this patient's care. Feel free to reach out in case of any followup questions.
[2025-02-02] MEDS: ASPIRIN 325 MG TAB PO STA (13:22)
[2025-02-02] MEDS: ATORVASTATIN 80 MG TAB PO STA (13:22)
--- NOTE | 2025-02-02 14:29 | P.DS ---
Providers Date of admission: 02/01/25 22:28 Expected date of discharge: 02/02/25 Attending physician: Jennifer Stover Consults: 02/01/25 22:26 Consult Physician Routine Consulting Provider: Francis Elkins Consult Reason/Comments: SVT, elevated trop Do you want consulting provider notified?: Yes Primary care physician: Andrei Lopez Hospital Course: Discharge diagnoses; #SVT #Elevated troponin, possible NSTEMI versus secondary to SVT #Family history of premature coronary artery disease #KEELEY vs CKD #Leukocytosis, reactive, resolved Hospital course; History of present illness; Patient is a 49-year-old male with history of SVT presenting with palpitations. Symptoms began last night at rest. He states he has a prescription for metoprolol which he takes inconsistently. He has seen cardiology previously. He states he did not have much to eat or drink today. He denies alcohol or drug use. He denies chest pain, diaphoresis and shortness of breath. Labs significant for WBC 11.8, sodium 141, potassium 3.8, creatinine 1.37, glucose 122, troponin 0.057 => 0.136 => 0.218, APTT 26.1 => 31.8 EKG independently interpreted showed SVT heart rate of 175, QTc 316, nonspecific ST and T wave abnormality. During stay patient patient completed cardiac catheterization with findings of mildly elevated LVEDP, angiographically patent coronary arteries. Patient discharged home in stable condition. Begin aspirin 81 mg daily, Lipitor 40 mg daily, Cardizem 30 mg 4 times daily, losartan 25 mg daily. Follow-up with cardiology and PCP. PHYSICAL EXAMINATION: Vitals reviewed GENERAL: Resting comfortably in bed. Obese. EYES: PERRL, no scleral injection or icterus. No vision loss HENT: Normocephalic, atraumatic, hearing grossly intact, moist mucous membranes NECK: No tracheal deviation, full range of motion. CARDIOVASCULAR: S1 and S2 present. Tachycardic. No murmurs, rubs, or gallops. PULMONARY: Chest is clear to auscultation, no wheezing, rhonchi, or crackles. ABDOMEN: Soft, nontender, nondistended. No palpable organomegaly. MUSCULOSKELETAL: No apparent joint swelling and deformities. EXTREMITIES: No apparent cyanosis, clubbing. No pedal edema. NEUROLOGICAL: Alert and oriented. Gross neurological examination with no apparent focal deficits. SKIN: No apparent rashes. Dr. Arevalo seen patient with resident, present during exam, and agreed with findings. Dictation was produced using [employer] dictation software. please excuse any grammatical, word or spelling errors. Patient Condition at Discharge: Stable Plan - Discharge Summary Discharge Rx Participant: Yes New Discharge Prescriptions: New Diltiazem Cd [Cardizem CD] 120 mg PO DAILY #30 cap Atorvastatin [Lipitor] 40 mg PO HS #30 tab Aspirin 81 mg PO DAILY #30 tab Losartan [Cozaar] 25 mg PO DAILY #30 tab Discharge Medication List Aspirin 81 mg PO DAILY #30 tab 02/02/25 [Rx] Atorvastatin [Lipitor] 40 mg PO HS #30 tab 02/02/25 [Rx] Diltiazem Cd [Cardizem CD] 120 mg PO DAILY #30 cap 02/02/25 [Rx] Losartan [Cozaar] 25 mg PO DAILY #30 tab 02/02/25 [Rx] Follow up Appointment(s)/Referral(s): Kostas Brian MD [Medical Doctor] - 02/19/25 11:30 am Francis Elkins MD [STAFF PHYSICIAN] - 04/25/25 4:00 pm (Appointment at the [facility].Location) Andrei Lopez [Primary Care Provider] - 1-2 days Patient Instructions/Handouts: Supraventricular Tachycardia (ED) Activity/Diet/Wound Care/Special Instructions: Maintain blood pressure log at home to show in office with cardiology. Follow- up with PCP and cardiology. Discharge Disposition: HOME SELF-CARE Plan of Treatment: Maintain blood pressure log and show to artistic associate office Set up appointment with Dr. Elkins and then for Dr. Brian. He needs EP study and thereafter possible AVNRT ablation procedure with Dr. Elkins.
[2025-02-02] MEDS: DILTIAZEM CD 120 MG CAP.ER.24H PO SCH (14:35)
[2025-02-02] MEDS: SODIUM CHLORIDE 0.9% 1,000 ML IV SCH (14:35)
[2025-02-02 15:52] LABS: NT-Pro-B-Type Natriuretic Pept 475 pg/mL (0-125)
[2025-02-02 15:56] LABS: LDL Cholesterol,Calculated 168.8 mg/dL (0.0-131.0)
[2025-02-02 16:35] VITALS: RESP 19; TEMP 98.7
[2025-02-02 17:47] VITALS: BP 144/82; PULSE 70
[2025-02-02] MEDS ORDERED: ATORVASTATIN 40 MG TAB PO SCH (21:00)
== END 2025-02-02 18:43 | disposition home or self-care (01) ==
LOC: EC 19:25 → 6NMEDSUR 22:28
PROVIDERS: ADMIT Hospitalist; ATTEND Hospitalist
DX: I47.10 Supraventricular tachycardia, unspecified (principal); R79.89 Other specified abnormal findings of blood chemistry; D72.829 Elevated white blood cell count, unspecified; I10 Essential (primary) hypertension; Z79.899 Other long term (current) drug therapy; Z82.49 Family history of ischemic heart disease and other diseases of the circulatory system
CPT/HCPCS: 96360; 99291; 36415; 94760; 93005; 93306; 93458; 83880; 80061; 80053; 84443; 83735; 84484 ×2; 85025 ×2; 85610; 85730 ×2; 83036; G0378 ×2; C1894; C1769; J2250; J1644 ×4; J2003; J3010; Q9967; 96361